=== PATIENT | female | born 1995 | race Caucasian/White ===

== ENCOUNTER 2017-10-15 09:30 | Inpatient (IN) | payer BC ==
[2017-10-15] MEDS ORDERED: Sodium Chloride 0.9% 2.5 ML Syringe FLUSH PRN (10:24)
[2017-10-15] MEDS ORDERED: ceFAZolin 2 GM in Premix Bag 1 BAG IV ONE (10:24)
[2017-10-15] MEDS ORDERED: Sodium Chloride 0.9% 10 ML Syringe FLUSH PRN (10:24)
[2017-10-15] MEDS ORDERED: Oxytocin/0.9 % Sodium Chloride 30 UNIT/500 ML BAG IV SCH (10:30)
[2017-10-15] MEDS ORDERED: Citric Acid/Sodium Citrate Solution 30 ML Cup PO SCH (10:30)
[2017-10-15] MEDS: Lactated Ringers 1,000 ML IV SCH ×2 (10:41→11:43)
--- NOTE | 2017-10-15 10:57 | PCM.PREANE ---
Preanesthetic Assessment - Anesthesia/Transfusion/Family Hx Anesthesia History: Prior Anesthesia Without Reaction Family History of Anesthesia Reaction: No Transfusion History: No Prior Transfusion(s) Intubation History: Unknown - Review of Systems General: No Symptoms Pulmonary: No Symptoms Cardiovascular: No Symptoms Gastrointestinal: No Symptoms Neurological: No Symptoms Other: Reports: None - Physical Assessment Height: 1.65 m Weight: 78.925 kg ASA Class: 2 Mental Status: Alert & Oriented x3 Airway Class: Mallampati = 2 Dentition: Reports: Normal Dentition (small chip front upper incisor, upper and lower retainer) Thyro-Mental Finger Breadths: 3 Mouth Opening Finger Breadths: 3 ROM/Head Extension: Full Lungs: Clear to Auscultation, Normal Respiratory Effort Cardiovascular: Regular Rate, Regular Rhythm - Allergies Allergies/Adverse Reactions: Allergies Allergy/AdvReac Type Severity Reaction Status Date / Time Dairy Products Allergy Stomach Verified 10/15/17 10:37 Upset Penicillins Allergy Drowsiness Verified 10/15/17 10:36 narcotics Allergy Lethargy Uncoded 10/13/17 09:41 - Blood Blood Available: No - Anesthesia Plan Pre-Op Medication Ordered: None - Acknowledgements Anesthesia Type Planned: Spinal Pt an Appropriate Candidate for the Planned Anesthesia: Yes Alternatives and Risks of Anesthesia Discussed w Pt/Guardian: Yes Pt/Guardian Understands and Agrees with Anesthesia Plan: Yes PreAnesthesia Questionnaire HEENT History: Reports: Other (See Below) Other HEENT History: wears contacts/glasses Gastrointestinal History: Reports: Other (See Below) Other Gastrointestinal History: heartburn during Genitourinary History: Reports: None 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: Musculoskeletal History: Reports: None - Past Surgical History Head Surgeries/Procedures: Reports: None HEENT Surgical History: Reports: Oral Surgery Female Surgical History: Reports: Section Musculoskeletal Surgical History: Reports: Other (See Below) Other Musculoskeletal Surgeries/Procedures:: 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 webbed toes - SUBSTANCE USE Smoking Status *Q: Former Smoker Recreational Drug Use History: No - HOME MEDS Home Medications: Home Meds Ascorbate Calcium [Vitamin C] 1 tab PO DAILY 10/13/17 [History] Iron 1 tab PO ASDIRECTED 10/13/17 [History] PNV95/Ferrous Fumarate/FA [ Vitamin Tablet] 1 tab PO DAILY 10/13/17 [ History] - CURRENT (IN HOUSE) MEDS Current Meds: Current Medications Citric Acid/Sodium Citrate (Bicitra Solution) 30 ml PO .ONCE GILDA Lactated Ringer's (Ringers, Lactated) 1,000 mls @ 500 mls/hr IV .BOLUS GILDA Oxytocin/Sodium Chloride (Oxytocin 30 Unit/500 Ml-Ns) 30 unit in 500 mls @ 250 mls/hr IV TITRATE GILDA Sodium Chloride (Saline Flush) 10 ml FLUSH ASDIRECTED PRN PRN Reason: Keep Vein Open Sodium Chloride (Saline Flush) 2.5 ml FLUSH ASDIRECTED PRN PRN Reason: Keep Vein Open Discontinued Medications Cefazolin Sodium/Dextrose 2 gm (/ Premix) 50 mls @ 100 mls/hr IV ONETIME ONE Stop: 10/15/17 10:53
[2017-10-15] MEDS ORDERED: ceFAZolin/Dextrose,Iso-Osmotic 2 GM/50 ML Duplex Bag IV ONE (11:35)
[2017-10-15] MEDS ORDERED: ePHEDrine 50 MG/ML SDV ONE (11:36)
[2017-10-15] MEDS ORDERED: Morphine PF 1 MG/ML Amp ONE (11:36)
[2017-10-15] MEDS ORDERED: Ondansetron 4 MG/2 ML SDV ONE (11:36)
[2017-10-15] MEDS ORDERED: Oxytocin/0.9 % Sodium Chloride 30 UNIT/500 ML BAG ONE (11:48)
[2017-10-15] MEDS ORDERED: Phenylephrine/Normal Saline 100 MCG/ML 10 ML Syringe ONE (12:10)
[2017-10-15] MEDS ORDERED: fentaNYL 100 MCG/2 ML SDV ONE (12:37)
[2017-10-15] MEDS ORDERED: diphenhydrAMINE 50 MG/ML SDV ONE (12:49)
[2017-10-15] MEDS ORDERED: fentaNYL 100 MCG/2 ML SDV IVPUSH PRN (13:27)
[2017-10-15] MEDS ORDERED: Nalbuphine 10 MG/1 ML Vial IVPUSH PRN (13:27)
[2017-10-15] MEDS ORDERED: Naloxone 0.4 MG/ML Syringe IVPUSH PRN (13:27)
[2017-10-15] MEDS ORDERED: diphenhydrAMINE 50 MG/ML SDV IVPUSH PRN ×2 (13:27→13:38)
[2017-10-15] MEDS ORDERED: Lanolin 100% Cream 7 GM Tube TOP PRN (13:38)
[2017-10-15] MEDS ORDERED: Acetaminophen/oxyCODONE 325-5 MG Tab PO PRN (13:38)
[2017-10-15] MEDS ORDERED: Bisacodyl 10 MG Supp RECTAL PRN (13:38)
[2017-10-15] MEDS ORDERED: Ondansetron 4 MG/2 ML SDV IV PRN (13:38)
[2017-10-15] MEDS ORDERED: Ibuprofen 800 MG Tab PO PRN (13:38)
[2017-10-15] MEDS ORDERED: Lactated Ringers 1,000 ML IV SCH (13:45)
--- NOTE | 2017-10-15 13:50 | PCM.OPNOTE ---
- General Post-Op/Procedure Note Date of Surgery/Procedure: 10/15/17 Operative Procedure(s): Repeat Findings: Male , Wt 3800grams, Apgars 8 and 9. Unicornuate uterus, grossly normal tubes and ovaries bilaterally. Normal placenta with 3 vessel cord Pre Op Diagnosis: 39.1 weeks, Previous , desries repeat, Breech presentation Post-Op Diagnosis: Same Anesthesia Technique: Spinal Primary Surgeon: Vani Mcclure Resource Room Teacher: Janel May Fluid Replacement, Intraop: 2,500 Output, Urine Amount: 350 EBL in mLs: 800 Complications: None Condition: Good Free Text/Narrative:: Intake & Output 10/14/17 10/15/17 10/15/17 22:59 06:59 14:59 Output Total 250 Balance -250
[2017-10-15] MEDS ORDERED: Ketorolac 30 MG/ML SDV ONE (13:55)
[2017-10-15] MEDS: Ketorolac 30 MG/ML SDV IVPUSH SCH ×2 (13:57→19:53)
--- NOTE | 2017-10-15 14:10 | PCM.POSTAN ---
POST ANESTHESIA ASSESSMENT - MENTAL STATUS Mental Status: Alert, Oriented - RESPIRATORY Respiratory Status: Respiratory Rate WNL, Airway Patent, O2 Saturation Stable - CARDIOVASCULAR CV Status: Pulse Rate WNL, Blood Pressure Stable - GASTROINTESTINAL GI Status: No Symptoms - PAIN Pain Score: 5 - POST OP HYDRATION Hydration Status: Adequate & Stable - OBSERVATIONS Free Text/Narrative:: no anesthesia problems
--- NOTE | 2017-10-15 19:58 | OR ---
SURGEON: Vani Mcclure MD DATE OF PROCEDURE: 10/15/2017 SENIOR DIRECTOR CREATIVE SERVICES: Kaylen Mejia, medical student. PREOPERATIVE DIAGNOSES: 1. Term at 39 weeks and 2 days. 2. Previous section, desires repeat. 3. Breech presentation. POSTOPERATIVE DIAGNOSES: 1. Term at 39 weeks and 2 days. 2. Previous section, desires repeat. 3. Breech presentation. 4. Delivered. PROCEDURE: Repeat low transverse section via Pfannenstiel. ANESTHESIA: Spinal. ESTIMATED BLOOD LOSS: 800 mL. IV FLUID: 2500 mL of crystalloid. URINE OUTPUT: 350 mL, clear at the end of the procedure. COMPLICATIONS: None. DISPOSITION: Stable to recovery room. INDICATION: The patient is a 22-year-old, G3, P 1-0-1-1 at 39 weeks and 2 days' gestation, previous section who desires a repeat. Breech presentation at term. FINDINGS: Male infant in juanita breech presentation, score 8 and 9 at 1 and 5 minutes respectively. Weight 3800 g. Clear amniotic fluid. Unicornuate uterus as previously noted at her last section with well-developed right horn. The left horn is rudimentary, but she does have normal bilateral tubes and ovaries. Grossly normal placenta with 3-vessel cord. DESCRIPTION OF PROCEDURE: The patient was taken to the operating room where spinal was performed and was found to be adequate. She was then prepped and draped in a usual sterile fashion in dorsal supine position with a leftward tilt. SCDs in place. 2 g of Ancef was given. Appropriate time-out was performed. A Pfannenstiel skin incision was made through the old scar with a scalpel and carried through to the underlying fascia with the Bovie. The fascia was incised in the midline and the incision was extended laterally with the Elizalde. The superior aspect of this fascial incision was grasped with Fabricio clamps, elevated, and underlying rectus muscles were dissected off bluntly and sharply with the scalpel. Attention was then turned to the inferior aspect of this incision, which in similar fashion was grasped with Fabricio clamps, elevated, and the rectus muscle was dissected off with the Elizalde. The rectus muscle was then in the midline and the parietal peritoneum was identified and entered bluntly. The peritoneal defect was then extended laterally by stretching. The bladder blade was then inserted and the vesicouterine peritoneum was identified, grasped with pickups and entered sharply with Metzenbaum scissors. This incision was extended laterally and bladder flap was created digitally. The bladder blade was then reinserted and the lower uterine segment was incised in a transverse fashion with the scalpel. The incision was extended upwards and downwards bluntly. The bladder blade was removed and the 's feet were lifted out of the pelvis, delivered followed by the buttocks and then the rest of the baby was then delivered by routine breech extraction maneuvers. The baby was vigorous and cried spontaneously after . The oropharynx and the nostrils were bulb suctioned on the abdomen, the cord was double clamped and, the was then handed over to the waiting nursery team. Cord blood and gas samples were obtained. The placenta was removed by controlled cord traction via massage. The uterus was exteriorized and cleared of all clots and debris. The hysterotomy site was repaired in 2 layers using 0 Vicryl suture. The first layer was repaired in a running locked fashion and the second imbricating layer was performed to obtain excellent hemostasis. Copious irrigation was performed and the uterus was returned into the abdominal cavity. The gutters were cleared of all clots and debris. The hysterotomy site was reexamined and found to have excellent hemostasis. The peritoneum was identified and closed with 2-0 Vicryl suture. The rectus muscle was reapproximated with the same suture. The subfascial tissues were examined and found to be hemostatic. The fascia was approximated with 0 Vicryl in a running fashion. Postop cutaneous tissues were irrigated and made hemostatic with electrocautery. The skin was closed with subcuticular stitches using 4-0 Monocryl suture. The patient tolerated the procedure well. Sponge, lap, and needle instrument counts were correct at the end of the procedure. The patient was taken to the recovery in a stable condition. The baby was taken to the nursery in a stable condition. ADUMVIV / REBECAL /[id number]
[2017-10-15] MEDS: Docusate Sodium 100 MG Cap PO SCH (20:15)
[2017-10-16] MEDS: Ketorolac 30 MG/ML SDV IVPUSH SCH ×3 (02:01→14:14)
--- NOTE | 2017-10-16 08:23 | PCM.PNPP ---
<LaloJanel Retana - Last Filed: 10/16/17 08:17> - General Info Date of Service: 10/16/17 Admission Dx/Problem (Free Text): 39/2, Breech with RLTCS. Subjective Update: Patient is doing well. Formula feeding. Lochia WNL. Pain is well controlled. Tolerating food with no n/v. Hernandes catheter has been discontinued. Urinating. No bowel movement or flatus. Ambulating. Utilizing ICS. Anticipate discharge tomorrow. Functional Status: Reports: Pain Controlled, Tolerating Diet, Ambulating, Urinating, Incentive Spirometry - Review of Systems General: Denies: Fever, Chills HEENT: Denies: Headaches Pulmonary: Denies: Shortness of Breath, Pleuritic Chest Pain Cardiovascular: Denies: Chest Pain, Palpitations, Lightheadedness Gastrointestinal: Denies: Abdominal Pain, Nausea, Vomiting Psychiatric: Reports: No Symptoms - General Info Date of Service: 10/16/17 - Patient Data Vital Signs - Most Recent: Last Vital Signs Temp 36.9 C 10/16/17 08:00 Pulse 89 10/16/17 08:00 Resp 15 10/16/17 08:00 BP 115/55 L 10/16/17 08:00 Pulse Ox 98 10/16/17 08:00 Weight - Most Recent: 78.925 kg Lab Results - Last 24 Hours: Laboratory Results - last 24 hr 10/15/17 10/15/17 10/15/17 Range/Units 10:44 10:44 12:30 WBC 8.62 (4.0-11.0) K/uL RBC 3.53 L (4.30-5.90) M/uL Hgb 11.9 L (12.0-16.0) g/dL Hct 35.0 L (36.0-46.0) % MCV 99.2 H (80.0-98.0) fL MCH 33.7 H (27.0-32.0) pg MCHC 34.0 (31.0-37.0) g/dL RDW Std Deviation 48.7 (28.0-62.0) fl RDW Coeff of Heather 14 (11.0-15.0) % Plt Count 166 (150-400) K/uL MPV 10.30 (7.40-12.00) fL Nucleated RBC % 0.0 /100WBC Nucleated RBCs # 0 K/uL Cord ABG pH 7.580 H (7.18-7.38) Cord ABG Base Excess 0 H (-10--2) Cord VBG pH 7.338 (7.25-7.45) Cord VBG Base Excess -1 H (-10--2) Blood Type O POSITIVE Antibody Screen NEGATIVE 10/16/17 Range/Units 06:23 WBC (4.0-11.0) K/uL RBC (4.30-5.90) M/uL Hgb 10.4 L (12.0-16.0) g/dL Hct 31.5 L (36.0-46.0) % MCV (80.0-98.0) fL MCH (27.0-32.0) pg MCHC (31.0-37.0) g/dL RDW Std Deviation (28.0-62.0) fl RDW Coeff of Heather (11.0-15.0) % Plt Count (150-400) K/uL MPV (7.40-12.00) fL Nucleated RBC % /100WBC Nucleated RBCs # K/uL Cord ABG pH (7.18-7.38) Cord ABG Base Excess (-10--2) Cord VBG pH (7.25-7.45) Cord VBG Base Excess (-10--2) Blood Type Antibody Screen Med Orders - Current: Current Medications Bisacodyl (Dulcolax) 10 mg RECTAL .ONCE PRN PRN Reason: Constipation Diphenhydramine HCl (Benadryl) 12.5 mg IVPUSH Q4H PRN PRN Reason: pruritis Stop: 10/16/17 13:29 Diphenhydramine HCl (Benadryl) 25 mg IVPUSH Q6H PRN PRN Reason: Itching or Nausea Docusate Sodium (Colace) 100 mg PO BID GILDA Last Admin: 10/15/17 20:15 Dose: 100 mg Emollient Ointment (Lansinoh Hpa) 0 gm TOP ASDIRECTED PRN PRN Reason: Sore Nipples Fentanyl (Sublimaze) 50 mcg IVPUSH .Q60MIN PRN PRN Reason: breakthrough pain (severe) Stop: 10/16/17 13:28 Last Admin: 10/15/17 13:47 Dose: 50 mcg Lactated Ringer's (Ringers, Lactated) 1,000 mls @ 125 mls/hr IV ASDIRECTED [facility] Last Admin: 10/15/17 18:49 Dose: 125 mls/hr Ibuprofen (Motrin) 800 mg PO Q8H PRN PRN Reason: mild pain or fever Ketorolac Tromethamine (Toradol) 30 mg IVPUSH Q6H [facility] Stop: 10/16/17 13:46 Last Admin: 10/16/17 08:01 Dose: 30 mg Nalbuphine HCl (Nubain) 2.5 mg IVPUSH Q3H PRN PRN Reason: Pruritis Stop: 10/16/17 13:29 Naloxone HCl (Narcan) 0.1 mg IVPUSH ONETIME PRN PRN Reason: RR<6 WITH STIMULATION Stop: 10/16/17 13:29 Ondansetron HCl (Zofran) 4 mg IV Q4H PRN PRN Reason: Nausea/Vomiting Last Admin: 10/15/17 15:55 Dose: 4 mg Oxycodone/Acetaminophen (Percocet 325-5 Mg) 1 tab PO Q4H PRN PRN Reason: Pain (moderate 4-6) Oxycodone/Acetaminophen (Percocet 325-5 Mg) 2 tab PO Q4H PRN PRN Reason: Pain (moderate 4-6) Discontinued Medications Cefazolin Sodium/Dextrose (Ancef) Confirm Administered Dose 2 gm IV .STK-MED ONE Stop: 10/15/17 11:36 Citric Acid/Sodium Citrate (Bicitra Solution) 30 ml PO .ONCE [facility] Diphenhydramine HCl (Benadryl) Confirm Administered Dose 50 mg .ROUTE .STK-MED ONE Stop: 10/15/17 12:50 Ephedrine Sulfate (Ephedrine Sulfate) Confirm Administered Dose 50 mg .ROUTE .STK-MED ONE Stop: 10/15/17 11:37 Fentanyl (Sublimaze) Confirm Administered Dose 100 mcg .ROUTE .STK-MED ONE Stop: 10/15/17 12:38 Cefazolin Sodium/Dextrose 2 gm (/ Premix) 50 mls @ 100 mls/hr IV ONETIME ONE Stop: 10/15/17 10:53 Lactated Ringer's (Ringers, Lactated) 1,000 mls @ 500 mls/hr IV .BOLUS GILDA Last Admin: 10/15/17 11:43 Dose: 999 mls/hr Oxytocin/Sodium Chloride (Oxytocin 30 Unit/500 Ml-Ns) 30 unit in 500 mls @ 250 mls/hr IV TITRATE GILDA Oxytocin/Sodium Chloride (Oxytocin 30 Unit/500 Ml-Ns) Confirm Administered Dose 30 unit in 500 mls @ as directed .ROUTE .STK-MED ONE Stop: 10/15/17 11:49 Ketorolac Tromethamine (Toradol) Confirm Administered Dose 30 mg .ROUTE .STK- MED ONE Stop: 10/15/17 13:56 Morphine Sulfate (Duramorph Pf) Confirm Administered Dose 1 mg .ROUTE .STK-MED ONE Stop: 10/15/17 11:37 Ondansetron HCl (Zofran) Confirm Administered Dose 4 mg .ROUTE .STK-MED ONE Stop: 10/15/17 11:37 Phenylephrine HCl (Phenylephrine In Ns 100 Mcg/Ml) Confirm Administered Dose 1 mg .ROUTE .STK-MED ONE Stop: 10/15/17 12:11 Sodium Chloride (Saline Flush) 10 ml FLUSH ASDIRECTED PRN PRN Reason: Keep Vein Open Sodium Chloride (Saline Flush) 2.5 ml FLUSH ASDIRECTED PRN PRN Reason: Keep Vein Open - Infant Interaction Infant Disposition, : in Room with Family Infant Interaction: Holding Infant Feeding: Bottle Fed Support Person: - Recovery Exam Fundal Tone: Firm Fundal Placement: Midline Lochia Amount: Scant Lochia Color: Rubra/Red Bladder Status: Voiding Urinary Elimination: Voided - Exam General: Alert, Oriented, No Acute Distress Lungs: Clear to Auscultation, Normal Respiratory Effort Cardiovascular: Regular Rate, Regular Rhythm GI/Abdominal Exam: Soft, Non-Tender Extremities: Pedal Edema Skin: Warm, Dry, Intact Wound/Incisions: Healing Well Psy/Mental Status: Alert Physical Findings Comment:: Trace pedal edema. - Assessment Assessment:: POD #1. Stable. Anticipate discharge tomorrow. - Plan Plan:: Routine post-op and post- cares. <Paola Harrison - Last Filed: 10/16/17 09:50> - Patient Data Vital Signs - Most Recent: Last Vital Signs Temp 36.9 C 10/16/17 08:00 Pulse 89 10/16/17 08:00 Resp 15 10/16/17 08:00 BP 115/55 L 10/16/17 08:00 Pulse Ox 98 10/16/17 08:00 I&O - Last 24 Hours: Intake & Output 10/15/17 10/16/17 10/16/17 22:59 06:59 14:59 Intake Total 1375 Output Total 1060 Balance 315 Lab Results - Last 24 Hours: Laboratory Results - last 24 hr 10/15/17 10/15/17 10/15/17 Range/Units 10:44 10:44 12:30 WBC 8.62 (4.0-11.0) K/uL RBC 3.53 L (4.30-5.90) M/uL Hgb 11.9 L (12.0-16.0) g/dL Hct 35.0 L (36.0-46.0) % MCV 99.2 H (80.0-98.0) fL MCH 33.7 H (27.0-32.0) pg MCHC 34.0 (31.0-37.0) g/dL RDW Std Deviation 48.7 (28.0-62.0) fl RDW Coeff of Heather 14 (11.0-15.0) % Plt Count 166 (150-400) K/uL MPV 10.30 (7.40-12.00) fL Nucleated RBC % 0.0 /100WBC Nucleated RBCs # 0 K/uL Cord ABG pH 7.580 H (7.18-7.38) Cord ABG Base Excess 0 H (-10--2) Cord VBG pH 7.338 (7.25-7.45) Cord VBG Base Excess -1 H (-10--2) Blood Type O POSITIVE Antibody Screen NEGATIVE 10/16/17 Range/Units 06:23 WBC (4.0-11.0) K/uL RBC (4.30-5.90) M/uL Hgb 10.4 L (12.0-16.0) g/dL Hct 31.5 L (36.0-46.0) % MCV (80.0-98.0) fL MCH (27.0-32.0) pg MCHC (31.0-37.0) g/dL RDW Std Deviation (28.0-62.0) fl RDW Coeff of Heather (11.0-15.0) % Plt Count (150-400) K/uL MPV (7.40-12.00) fL Nucleated RBC % /100WBC Nucleated RBCs # K/uL Cord ABG pH (7.18-7.38) Cord ABG Base Excess (-10--2) Cord VBG pH (7.25-7.45) Cord VBG Base Excess (-10--2) Blood Type Antibody Screen Med Orders - Current: Current Medications Bisacodyl (Dulcolax) 10 mg RECTAL .ONCE PRN PRN Reason: Constipation Diphenhydramine HCl (Benadryl) 12.5 mg IVPUSH Q4H PRN PRN Reason: pruritis Stop: 10/16/17 13:29 Diphenhydramine HCl (Benadryl) 25 mg IVPUSH Q6H PRN PRN Reason: Itching or Nausea Docusate Sodium (Colace) 100 mg PO BID [facility] Last Admin: 10/16/17 08:59 Dose: 100 mg Emollient Ointment (Lansinoh Hpa) 0 gm TOP ASDIRECTED PRN PRN Reason: Sore Nipples Fentanyl (Sublimaze) 50 mcg IVPUSH .Q60MIN PRN PRN Reason: breakthrough pain (severe) Stop: 10/16/17 13:28 Last Admin: 10/15/17 13:47 Dose: 50 mcg Lactated Ringer's (Ringers, Lactated) 1,000 mls @ 125 mls/hr IV ASDIRECTED [facility] Last Admin: 10/15/17 18:49 Dose: 125 mls/hr Ibuprofen (Motrin) 800 mg PO Q8H PRN PRN Reason: mild pain or fever Ketorolac Tromethamine (Toradol) 30 mg IVPUSH Q6H [facility] Stop: 10/16/17 13:46 Last Admin: 10/16/17 08:01 Dose: 30 mg Nalbuphine HCl (Nubain) 2.5 mg IVPUSH Q3H PRN PRN Reason: Pruritis Stop: 10/16/17 13:29 Naloxone HCl (Narcan) 0.1 mg IVPUSH ONETIME PRN PRN Reason: RR<6 WITH STIMULATION Stop: 10/16/17 13:29 Ondansetron HCl (Zofran) 4 mg IV Q4H PRN PRN Reason: Nausea/Vomiting Last Admin: 10/15/17 15:55 Dose: 4 mg Oxycodone/Acetaminophen (Percocet 325-5 Mg) 1 tab PO Q4H PRN PRN Reason: Pain (moderate 4-6) Oxycodone/Acetaminophen (Percocet 325-5 Mg) 2 tab PO Q4H PRN PRN Reason: Pain (moderate 4-6) Discontinued Medications Cefazolin Sodium/Dextrose (Ancef) Confirm Administered Dose 2 gm IV .STK-MED ONE Stop: 10/15/17 11:36 Citric Acid/Sodium Citrate (Bicitra Solution) 30 ml PO .ONCE GILDA Diphenhydramine HCl (Benadryl) Confirm Administered Dose 50 mg .ROUTE .STK-MED ONE Stop: 10/15/17 12:50 Ephedrine Sulfate (Ephedrine Sulfate) Confirm Administered Dose 50 mg .ROUTE .STK-MED ONE Stop: 10/15/17 11:37 Fentanyl (Sublimaze) Confirm Administered Dose 100 mcg .ROUTE .STK-MED ONE Stop: 10/15/17 12:38 Cefazolin Sodium/Dextrose 2 gm (/ Premix) 50 mls @ 100 mls/hr IV ONETIME ONE Stop: 10/15/17 10:53 Lactated Ringer's (Ringers, Lactated) 1,000 mls @ 500 mls/hr IV .BOLUS GILDA Last Admin: 10/15/17 11:43 Dose: 999 mls/hr Oxytocin/Sodium Chloride (Oxytocin 30 Unit/500 Ml-Ns) 30 unit in 500 mls @ 250 mls/hr IV TITRATE GILDA Oxytocin/Sodium Chloride (Oxytocin 30 Unit/500 Ml-Ns) Confirm Administered Dose 30 unit in 500 mls @ as directed .ROUTE .STK-MED ONE Stop: 10/15/17 11:49 Ketorolac Tromethamine (Toradol) Confirm Administered Dose 30 mg .ROUTE .STK- MED ONE Stop: 10/15/17 13:56 Last Admin: 10/16/17 08:58 Dose: Not Given Morphine Sulfate (Duramorph Pf) Confirm Administered Dose 1 mg .ROUTE .STK-MED ONE Stop: 10/15/17 11:37 Ondansetron HCl (Zofran) Confirm Administered Dose 4 mg .ROUTE .STK-MED ONE Stop: 10/15/17 11:37 Phenylephrine HCl (Phenylephrine In Ns 100 Mcg/Ml) Confirm Administered Dose 1 mg .ROUTE .STK-MED ONE Stop: 10/15/17 12:11 Sodium Chloride (Saline Flush) 10 ml FLUSH ASDIRECTED PRN PRN Reason: Keep Vein Open Sodium Chloride (Saline Flush) 2.5 ml FLUSH ASDIRECTED PRN PRN Reason: Keep Vein Open - Problem List & Annotations (1) Breech presentation SNOMED Code(s): 5203491 Code(s): O32.1XX0 - MATERNAL CARE FOR BREECH PRESENTATION, UNSP Status: Acute Current Visit: Yes (2) delivery delivered SNOMED Code(s): 448678129 Code(s): O82 - ENCOUNTER FOR DELIVERY WITHOUT INDICATION Status: Acute Current Visit: Yes - Problem List Review Problem List Initiated/Reviewed/Updated: Yes - Plan Plan:: patient was seen and examined and I agree with above. Discussed using oral pain medications as duramorph wears off. Encourage ambulation, anticipate discharge tomorrow.
[2017-10-16] MEDS: Docusate Sodium 100 MG Cap PO SCH (08:59)
[2017-10-16] MEDS: Acetaminophen/oxyCODONE 325-5 MG Tab PO PRN ×2 (12:32→17:58)
--- NOTE | 2017-10-17 00:35 | PCM48HPAN ---
Post Anesthesia Note - EVALUATION WITHIN 48HRS OF ANESTHETIC Vital Signs in Normal Range: Yes Patient Participated in Evaluation: Yes Respiratory Function Stable: Yes Airway Patent: Yes Cardiovascular Function Stable: Yes Hydration Status Stable: Yes Pain Control Satisfactory: Yes Nausea and Vomiting Control Satisfactory: Yes Mental Status Recovered: Yes Resp Rate: 15
[2017-10-17] MEDS: Docusate Sodium 100 MG Cap PO SCH (05:01)
--- NOTE | 2017-10-17 07:53 | PCM.PNPP ---
<Janel May - Last Filed: 10/17/17 07:48> - General Info Date of Service: 10/17/17 Admission Dx/Problem (Free Text): 39/2, Breech with RLTCS. Subjective Update: Patient is doing well. Formula feeding. Lochia WNL. Pain is well controlled. Tolerating food with no n/v. Urinating. No bowel movement or flatus is present. Ambulating. Utilizing ICS. Discharge today. Functional Status: Reports: Pain Controlled, Tolerating Diet, Ambulating, Urinating, Incentive Spirometry - Review of Systems General: Denies: Fever, Chills HEENT: Denies: Headaches Pulmonary: Denies: Shortness of Breath, Pleuritic Chest Pain Cardiovascular: Denies: Chest Pain, Palpitations, Lightheadedness Gastrointestinal: Reports: Flatus. Denies: Abdominal Pain, Nausea, Vomiting - General Info Date of Service: 10/17/17 - Patient Data Vital Signs - Most Recent: Last Vital Signs Temp 36.6 C 10/17/17 07:37 Pulse 73 10/17/17 07:37 Resp 15 10/17/17 07:37 BP 119/67 10/17/17 07:37 Pulse Ox 98 10/17/17 07:37 Weight - Most Recent: 78.925 kg Med Orders - Current: Current Medications Bisacodyl (Dulcolax) 10 mg RECTAL .ONCE PRN PRN Reason: Constipation Diphenhydramine HCl (Benadryl) 25 mg IVPUSH Q6H PRN PRN Reason: Itching or Nausea Docusate Sodium (Colace) 100 mg PO BID [facility] Last Admin: 10/17/17 05:01 Dose: Not Given Emollient Ointment (Lansinoh Hpa) 0 gm TOP ASDIRECTED PRN PRN Reason: Sore Nipples Lactated Ringer's (Ringers, Lactated) 1,000 mls @ 125 mls/hr IV ASDIRECTED [facility] Last Admin: 10/15/17 18:49 Dose: 125 mls/hr Ibuprofen (Motrin) 800 mg PO Q8H PRN PRN Reason: mild pain or fever Last Admin: 10/17/17 03:34 Dose: 800 mg Ondansetron HCl (Zofran) 4 mg IV Q4H PRN PRN Reason: Nausea/Vomiting Last Admin: 10/15/17 15:55 Dose: 4 mg Oxycodone/Acetaminophen (Percocet 325-5 Mg) 1 tab PO Q4H PRN PRN Reason: Pain (moderate 4-6) Last Admin: 10/16/17 17:58 Dose: 1 tab Oxycodone/Acetaminophen (Percocet 325-5 Mg) 2 tab PO Q4H PRN PRN Reason: Pain (moderate 4-6) Discontinued Medications Cefazolin Sodium/Dextrose (Ancef) Confirm Administered Dose 2 gm IV .STK-MED ONE Stop: 10/15/17 11:36 Citric Acid/Sodium Citrate (Bicitra Solution) 30 ml PO .ONCE GILDA Diphenhydramine HCl (Benadryl) Confirm Administered Dose 50 mg .ROUTE .STK-MED ONE Stop: 10/15/17 12:50 Diphenhydramine HCl (Benadryl) 12.5 mg IVPUSH Q4H PRN PRN Reason: pruritis Stop: 10/16/17 13:29 Ephedrine Sulfate (Ephedrine Sulfate) Confirm Administered Dose 50 mg .ROUTE .STK-MED ONE Stop: 10/15/17 11:37 Fentanyl (Sublimaze) Confirm Administered Dose 100 mcg .ROUTE .STK-MED ONE Stop: 10/15/17 12:38 Fentanyl (Sublimaze) 50 mcg IVPUSH .Q60MIN PRN PRN Reason: breakthrough pain (severe) Stop: 10/16/17 13:28 Last Admin: 10/15/17 13:47 Dose: 50 mcg Cefazolin Sodium/Dextrose 2 gm (/ Premix) 50 mls @ 100 mls/hr IV ONETIME ONE Stop: 10/15/17 10:53 Lactated Ringer's (Ringers, Lactated) 1,000 mls @ 500 mls/hr IV .BOLUS GILDA Last Admin: 10/15/17 11:43 Dose: 999 mls/hr Oxytocin/Sodium Chloride (Oxytocin 30 Unit/500 Ml-Ns) 30 unit in 500 mls @ 250 mls/hr IV TITRATE GILDA Oxytocin/Sodium Chloride (Oxytocin 30 Unit/500 Ml-Ns) Confirm Administered Dose 30 unit in 500 mls @ as directed .ROUTE .STK-MED ONE Stop: 10/15/17 11:49 Ketorolac Tromethamine (Toradol) 30 mg IVPUSH Q6H [facility] Stop: 10/16/17 13:46 Last Admin: 10/16/17 14:14 Dose: 30 mg Ketorolac Tromethamine (Toradol) Confirm Administered Dose 30 mg .ROUTE .STK- MED ONE Stop: 10/15/17 13:56 Last Admin: 10/16/17 08:58 Dose: Not Given Morphine Sulfate (Duramorph Pf) Confirm Administered Dose 1 mg .ROUTE .STK-MED ONE Stop: 10/15/17 11:37 Nalbuphine HCl (Nubain) 2.5 mg IVPUSH Q3H PRN PRN Reason: Pruritis Stop: 10/16/17 13:29 Naloxone HCl (Narcan) 0.1 mg IVPUSH ONETIME PRN PRN Reason: RR<6 WITH STIMULATION Stop: 10/16/17 13:29 Ondansetron HCl (Zofran) Confirm Administered Dose 4 mg .ROUTE .STK-MED ONE Stop: 10/15/17 11:37 Phenylephrine HCl (Phenylephrine In Ns 100 Mcg/Ml) Confirm Administered Dose 1 mg .ROUTE .STK-MED ONE Stop: 10/15/17 12:11 Sodium Chloride (Saline Flush) 10 ml FLUSH ASDIRECTED PRN PRN Reason: Keep Vein Open Sodium Chloride (Saline Flush) 2.5 ml FLUSH ASDIRECTED PRN PRN Reason: Keep Vein Open - Interaction Disposition, : in Room with Family Interaction: Holding Feeding: Bottle Fed Infant Support Person: - Recovery Exam Fundal Tone: Firm Fundal Placement: Midline Lochia Amount: Scant Lochia Color: Rubra/Red Episiotomy/Laceration: None Bladder Status: Voiding Urinary Elimination: Voided - Exam General: Alert, Oriented, No Acute Distress Lungs: Clear to Auscultation, Normal Respiratory Effort Cardiovascular: Regular Rate, Regular Rhythm GI/Abdominal Exam: Soft, Non-Tender Extremities: Pedal Edema (Trace) Skin: Warm, Dry Wound/Incisions: Healing Well Psy/Mental Status: Alert - Problem List & Annotations (1) Breech presentation SNOMED Code(s): 2304726 Code(s): O32.1XX0 - MATERNAL CARE FOR BREECH PRESENTATION, UNSP Status: Acute Current Visit: Yes (2) delivery delivered SNOMED Code(s): 685905561 Code(s): O82 - ENCOUNTER FOR DELIVERY WITHOUT INDICATION Status: Acute Current Visit: Yes - Assessment Assessment:: POD #2. Stable. Discharge today. - Plan Plan:: Discharge instructions reviewed. Pelvic rest for 6 weeks. Call if fever greater than 101 or bleeding through a heavy pad in an hour. Reviewed depression symptoms. Follow-up appointments in 2 and 6 weeks. <Paola Harrison - Last Filed: 10/17/17 10:12> - Patient Data Vital Signs - Most Recent: Last Vital Signs Temp 36.6 C 10/17/17 07:37 Pulse 73 10/17/17 07:37 Resp 15 10/17/17 07:37 BP 119/67 10/17/17 07:37 Pulse Ox 98 10/17/17 07:37 Med Orders - Current: Current Medications Bisacodyl (Dulcolax) 10 mg RECTAL .ONCE PRN PRN Reason: Constipation Diphenhydramine HCl (Benadryl) 25 mg IVPUSH Q6H PRN PRN Reason: Itching or Nausea Docusate Sodium (Colace) 100 mg PO BID [facility] Last Admin: 10/17/17 05:01 Dose: Not Given Emollient Ointment (Lansinoh Hpa) 0 gm TOP ASDIRECTED PRN PRN Reason: Sore Nipples Lactated Ringer's (Ringers, Lactated) 1,000 mls @ 125 mls/hr IV ASDIRECTED [facility] Last Admin: 10/15/17 18:49 Dose: 125 mls/hr Ibuprofen (Motrin) 800 mg PO Q8H PRN PRN Reason: mild pain or fever Last Admin: 10/17/17 03:34 Dose: 800 mg Ondansetron HCl (Zofran) 4 mg IV Q4H PRN PRN Reason: Nausea/Vomiting Last Admin: 10/15/17 15:55 Dose: 4 mg Oxycodone/Acetaminophen (Percocet 325-5 Mg) 1 tab PO Q4H PRN PRN Reason: Pain (moderate 4-6) Last Admin: 10/16/17 17:58 Dose: 1 tab Oxycodone/Acetaminophen (Percocet 325-5 Mg) 2 tab PO Q4H PRN PRN Reason: Pain (moderate 4-6) Discontinued Medications Cefazolin Sodium/Dextrose (Ancef) Confirm Administered Dose 2 gm IV .STK-MED ONE Stop: 10/15/17 11:36 Citric Acid/Sodium Citrate (Bicitra Solution) 30 ml PO .ONCE GILDA Diphenhydramine HCl (Benadryl) Confirm Administered Dose 50 mg .ROUTE .STK-MED ONE Stop: 10/15/17 12:50 Diphenhydramine HCl (Benadryl) 12.5 mg IVPUSH Q4H PRN PRN Reason: pruritis Stop: 10/16/17 13:29 Ephedrine Sulfate (Ephedrine Sulfate) Confirm Administered Dose 50 mg .ROUTE .STK-MED ONE Stop: 10/15/17 11:37 Fentanyl (Sublimaze) Confirm Administered Dose 100 mcg .ROUTE .STK-MED ONE Stop: 10/15/17 12:38 Fentanyl (Sublimaze) 50 mcg IVPUSH .Q60MIN PRN PRN Reason: breakthrough pain (severe) Stop: 10/16/17 13:28 Last Admin: 10/15/17 13:47 Dose: 50 mcg Cefazolin Sodium/Dextrose 2 gm (/ Premix) 50 mls @ 100 mls/hr IV ONETIME ONE Stop: 10/15/17 10:53 Lactated Ringer's (Ringers, Lactated) 1,000 mls @ 500 mls/hr IV .BOLUS GILDA Last Admin: 10/15/17 11:43 Dose: 999 mls/hr Oxytocin/Sodium Chloride (Oxytocin 30 Unit/500 Ml-Ns) 30 unit in 500 mls @ 250 mls/hr IV TITRATE GILDA Oxytocin/Sodium Chloride (Oxytocin 30 Unit/500 Ml-Ns) Confirm Administered Dose 30 unit in 500 mls @ as directed .ROUTE .STK-MED ONE Stop: 10/15/17 11:49 Ketorolac Tromethamine (Toradol) 30 mg IVPUSH Q6H GILDA Stop: 10/16/17 13:46 Last Admin: 10/16/17 14:14 Dose: 30 mg Ketorolac Tromethamine (Toradol) Confirm Administered Dose 30 mg .ROUTE .STK- MED ONE Stop: 10/15/17 13:56 Last Admin: 10/16/17 08:58 Dose: Not Given Morphine Sulfate (Duramorph Pf) Confirm Administered Dose 1 mg .ROUTE .STK-MED ONE Stop: 10/15/17 11:37 Nalbuphine HCl (Nubain) 2.5 mg IVPUSH Q3H PRN PRN Reason: Pruritis Stop: 10/16/17 13:29 Naloxone HCl (Narcan) 0.1 mg IVPUSH ONETIME PRN PRN Reason: RR<6 WITH STIMULATION Stop: 10/16/17 13:29 Ondansetron HCl (Zofran) Confirm Administered Dose 4 mg .ROUTE .STK-MED ONE Stop: 10/15/17 11:37 Phenylephrine HCl (Phenylephrine In Ns 100 Mcg/Ml) Confirm Administered Dose 1 mg .ROUTE .STK-MED ONE Stop: 10/15/17 12:11 Sodium Chloride (Saline Flush) 10 ml FLUSH ASDIRECTED PRN PRN Reason: Keep Vein Open Sodium Chloride (Saline Flush) 2.5 ml FLUSH ASDIRECTED PRN PRN Reason: Keep Vein Open - Problem List & Annotations (1) Breech presentation SNOMED Code(s): 0145775 Code(s): O32.1XX0 - MATERNAL CARE FOR BREECH PRESENTATION, UNSP Status: Acute Current Visit: Yes (2) delivery delivered SNOMED Code(s): 226942708 Code(s): O82 - ENCOUNTER FOR DELIVERY WITHOUT INDICATION Status: Acute Current Visit: Yes - Problem List Review Problem List Initiated/Reviewed/Updated: Yes - Plan Plan:: Patient was seen and examined by me and I agree with above. Discharge instructions reviewed
== END 2017-10-17 10:35 | disposition home or self-care (01) | DRG 540 ==
LOC: MW.OB 09:30
PROVIDERS: ADMIT Obstetrics & Gynecology; ATTEND Obstetrics & Gynecology
PROC: 10D00Z1 Extraction of Products of Conception, Low, Open Approach (ICD-10-PCS; principal; 2017-10-15)
DX: O32.1XX0 Maternal care for breech presentation, not applicable or unspecified (principal); Z3A.39 39 weeks gestation of pregnancy; Z37.0 Single live birth; Z88.0 Allergy status to penicillin
CPT/HCPCS: 36415; 59025; 82803; 85014; 85018; 85027; 86850; 86900; 86901; A9270-GY; J0690; J1200; J1885; J2274; J2405; J2590; J3010; J7120

== ENCOUNTER 2020-10-20 20:12 | Emergency (ER) | payer BC ==
[2020-10-20] MEDS ORDERED: Ibuprofen 600 MG Tab PO ONE (20:58)
[2020-10-20] MEDS ORDERED: Diphtheria,Pertussis(Acell),Tetanus Vaccine 0.5 ML Syringe IM ONE (20:58)
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
--- NOTE | 2020-10-21 10:58 | CR ---
INDICATION: Medial foot pain. Status post injury. TECHNIQUE: Three views right foot. FINDINGS: Mild soft tissue swelling dorsal aspect of right hindfoot and along the lateral aspect of the right 5th toe at the level of the MTP joint. Two tiny linear ossific densities in the soft tissues along the distal aspect of the calcaneus on only the oblique view. Such ossific densities can be seen related to an age- indeterminate avulsion fracture. Clinical correlation for pain in this location suggested. Right foot otherwise negative. Dictated by Bassem Aldrich MD @ 10/20/2020 10:01:28 PM Signed by: Bassem Aldrich MD @10/20/2020 10:01:28 PM (Electronic Signature) MTDD
== END 2020-10-20 23:19 | disposition home or self-care (01) ==
LOC: MW.ED 20:12
DX: S99.921A Unspecified injury of right foot, initial encounter (principal); S80.212A Abrasion, left knee, initial encounter; Z91.011 Allergy to milk products; Z88.5 Allergy status to narcotic agent; Z88.0 Allergy status to penicillin; Z23 Encounter for immunization; V86.56XA Driver of dirt bike or motor/cross bike injured in nontraffic accident, initial encounter
CPT/HCPCS: 73630; 90471; 90715; 99283; A9270